=== PATIENT | female | born 1970 | race Caucasian/White ===

== ENCOUNTER 2019-03-29 07:05 | Inpatient (IN) | payer OTHER ==
[~2019-03-29] VITALS: Ht 172.7 cm; Wt 76.7 kg
[~2019-03-29 07:05] MED LIST: ADDERALL XR 3030 MG PO; BENTYL 20 MG TA20 M1 PO; CITRATE OF MAG296 ML PO; GOLYTELY4000 M1 GT; LAMICTAL XR300 MG PO; LINZESS145 MCG PO; MIRALAX17 GM PO; SYNTHROID100 MC1 PO; SYNTHROID75 MCG PO; ZYRTEC10 M1 PO
[2019-03-29 07:19] VITALS: BP 99/59
[2019-03-29 08:01] LABS: URINE BILIRUBIN NEGATIVE (Negative); URINE BLOOD NEGATIVE (Negative); URINE CLARITY CLEAR; URINE COLOR YELLOW; URINE GLUCOSE-RANDOM NEGATIVE (Negative); URINE KETONES NEGATIVE (Negative); URINE LEUKOCYTES-REFLEX NEGATIVE (Negative); URINE NITRITE-REFLEX NEGATIVE (Negative); URINE PROTEIN NEGATIVE (Negative); URINE UROBILINOGEN 0.2 E.U./dl (0.2-1.0)
[2019-03-29 08:16] LABS: ABSOLUTE BASOPHILS 0.1 thou/uL (0.0-0.2); ABSOLUTE LYMPHOCYTES 1.2 thou/uL (0.8-5.3); ABSOLUTE MONOCYTES 1.1 thou/uL (0.0-1.2); ABSOLUTE NEUTROPHILS 6.5 thou/uL (1.6-8.1); EOSINOPHILS 0.4 %; HEMATOCRIT 37.2 % (37.0-47.0); HEMOGLOBIN 12.6 gm/dL (12.0-15.0); MCHC 33.9 g/dL (28.0-37.0); MCV 88.5 fL (80.0-100.0); MONOCYTES 12.7 %; MPV 9.1 fl. (7.2-11.1); NUCLEATED RBCS 0 /100WBC; PLATELET COUNT* 175 thou/uL (150-400); POLYS 72.9 %; RDW-CV 14.2 % (10.5-14.5)
[2019-03-29 08:24] LABS: CALCIUM 7.7 mg/dL (8.5-10.1); CREATININE 0.7 mg/dL (0.6-1.3); POTASSIUM 3.5 mmol/L (3.5-5.1)
[2019-03-29 08:28] LABS: ALBUMIN 2.9 g/dL (3.4-5.0); TOTAL BILIRUBIN 0.3 mg/dL (<0.1-1.0)
[2019-03-29 12:00] VITALS: BP 90/55
[2019-03-29 12:41] VITALS: BP 94/64
[2019-03-29 22:00] VITALS: BP 92/54
[2019-03-30 04:14] LABS: ABSOLUTE BASOPHILS 0.1 thou/uL (0.0-0.2); ABSOLUTE LYMPHOCYTES 1.3 thou/uL (0.8-5.3); ABSOLUTE NEUTROPHILS 6.2 thou/uL (1.6-8.1); BASOPHILS 1.3 %; EOSINOPHILS 0.5 %; HEMATOCRIT 36.2 % (37.0-47.0); LYMPHOCYTES 15.3 %; MCH 29.9 pg (26.0-34.0); MCHC 33.3 g/dL (28.0-37.0); MCV 89.8 fL (80.0-100.0); MONOCYTES 11.5 %; MPV 9.1 fl. (7.2-11.1); NUCLEATED RBCS 0 /100WBC; PLATELET COUNT* 180 thou/uL (150-400); POLYS 71.4 %; RBC 4.03 mil/uL (4.20-5.00); RDW-CV 14.2 % (10.5-14.5); WBC 8.7 thou/uL (4.0-11.0)
[2019-03-30 04:37] LABS: CREATININE 0.7 mg/dL (0.6-1.3); MAGNESIUM 1.8 mg/dL (1.8-2.4); POTASSIUM 3.8 mmol/L (3.5-5.1)
[2019-03-30 05:22] LABS: HEMATOCRIT 35.6 % (37.0-47.0); MCH 30.3 pg (26.0-34.0); MCHC 33.6 g/dL (28.0-37.0); MCV 90.2 fL (80.0-100.0); MPV 10.2 fl. (7.2-11.1); RBC 3.94 mil/uL (4.20-5.00); RDW-CV 14.2 % (10.5-14.5); WBC 8.8 thou/uL (4.0-11.0)
[2019-03-30 08:00] VITALS: BP 118/72
[2019-03-30 11:35] LABS: CALCIUM 7.9 mg/dL (8.5-10.1); CREATININE 0.7 mg/dL (0.6-1.3); MAGNESIUM 1.7 mg/dL (1.8-2.4); POTASSIUM 3.3 mmol/L (3.5-5.1)
--- NOTE | 2019-03-30 11:36 | EKG ---
[place] [address] ELECTROCARDIOGRAM REPORT Name: SHARONA BURCIAGA Room: [address] ADM IN .R.#: [id number] Admission: 03/29/19 Attend Phys: Noemi Juárez MD Discharge: Date of : 70 Report #: [id number] THIS REPORT FOR: //name// [facility] ED Test Date: 2019-03-29 Test Time: 07:32:40 Pat Name: SHARONA BURCIAGA Department: Room: [facility] Gender: F Executive Vp: : 1970 Requested By: Ino Pinedo Order Number: [id number] MD: George Rojo Measurements Intervals [place] Rate: 85 P: 63 [place]: 155 QRS: 48 QRSD: 91 T: 52 QT: 374 QTc: 445 Interpretive Statements Sinus rhythm Low voltage, precordial leads RSR' in V1 or V2, probably normal variant Baseline wander in lead(s) II,III,aVF No previous ECG available for comparison Electronically Signed On 03-30-2019 11:36:18 COMPUTER SYSTEMS ENGINEER by George Rojo [email or web address] <ELECTRONICALLY SIGNED> By: George Rojo MD, FACC 03/30/19 1136 0732 0732 George Rojo MD, [facility] /EPI
[2019-03-30 11:37] LABS: APTT 30.1 Seconds (25.0-31.3); PROTIME 10.7 Seconds (9.20-11.50)
[2019-03-30 16:00] VITALS: BP 92/44
[2019-03-30 21:00] VITALS: BP 102/50
[2019-03-31 06:05] LABS: HEMATOCRIT 32.9 % (37.0-47.0); HEMOGLOBIN 11.2 gm/dL (12.0-15.0); MCH 30.4 pg (26.0-34.0); MCHC 33.9 g/dL (28.0-37.0); MCV 89.5 fL (80.0-100.0); RBC 3.68 mil/uL (4.20-5.00); WBC 5.8 thou/uL (4.0-11.0)
[2019-03-31 06:16] LABS: CALCIUM 7.7 mg/dL (8.5-10.1); CREATININE 0.7 mg/dL (0.6-1.3); POTASSIUM 3.7 mmol/L (3.5-5.1)
[2019-03-31 07:54] VITALS: BP 111/72
[2019-03-31 15:46] VITALS: BP 121/76
[2019-03-31 20:00] VITALS: BP 124/81
[2019-04-01 04:11] LABS: HEMATOCRIT 31.3 % (37.0-47.0); HEMOGLOBIN 10.6 gm/dL (12.0-15.0); MCHC 33.7 g/dL (28.0-37.0); MCV 88.8 fL (80.0-100.0); MPV 9.4 fl. (7.2-11.1); RBC 3.52 mil/uL (4.20-5.00); RDW-CV 13.9 % (10.5-14.5); WBC 5.1 thou/uL (4.0-11.0)
[2019-04-01 04:38] LABS: CALCIUM 7.9 mg/dL (8.5-10.1); CREATININE 0.6 mg/dL (0.6-1.3); POTASSIUM 3.7 mmol/L (3.5-5.1)
[2019-04-01 07:19] VITALS: BP 103/67
[2019-04-01] MEDS ORDERED: NEURONTIN300 MG PO (11:09)
[2019-04-01] MEDS ORDERED: HYDROCODON-ACE1 EAC7 PO (11:10)
[2019-04-01] MEDS ORDERED: LEVAQUIN 750 M750 MG PO (11:11)
[2019-04-01 11:16] VITALS: BP 103/67
[2019-04-01 11:17] VITALS: BP 103/67
[2019-04-01] MEDS ORDERED: AUGMENTIN 875-1 EACH PO (12:28)
[2019-04-01 12:57] VITALS: BP 103/67
[2019-04-01 13:20] VITALS: BP 103/67
--- NOTE | 2019-04-04 21:42 | CON ---
[address] [address] CONSULTATION Name: SHARONA BURCIAGA Room: [address] IN M.R.#: [id number] Admission: 03/29/19 Attend Phys: Noemi Juárez MD Discharge: 04/01/19 Date of : 70 Report #: [id number] THIS REPORT FOR: //name// CC: Noemi Chaney MD DICTATED BY: Sharita Cordero [facility] DATE OF SERVICE: 03/30/2019 Please note at the time of this dictation, the patient was seen and physically examined by myself. REASON FOR CONSULTATION: Diverticulitis with microperforation. HISTORY OF PRESENT ILLNESS: This is a 48-year-old female who presented to the Emergency Room with sudden onset of left lower quadrant pain, which she described as being very abrupt. She was having chills. She was having some nausea as well as a decreased appetite with all this. She denies any fever or diarrhea at that time. She does have issues with chronic constipation, which she takes MiraLax daily for and she has been going regularly, soft and formed every other day. She has not noticed any bright red blood or any melena at this time. She did have a colonoscopy back in 2014 that showed diverticulosis in the sigmoid colon. She had descending and rectal polyps that were tubular adenoma and hyperplastic that were noted, as well as medium hemorrhoids. It was recommended to have a 5-year followup, which she is due next year for at this time. The patient states otherwise she has been doing relatively well since she has been last seen and MiraLax was working for her at this time. ALLERGIES: PREDNISONE AND BACTRIM, MILK AND GLUTEN. The patient does state that couple of years ago, she felt better when she had no dairy products and made herself gluten free. She has not had any testing to indicate that she has any of these problems. She states she just feels better when she has done this. MEDICATIONS FROM HOME: Have been her Adderall, Lamictal, and levothyroxine. PAST MEDICAL HISTORY: Chronic constipation and diverticulosis, ADHD, bipolar, seizure, and hypothyroidism. PAST SURGICAL HISTORY: Tonsillectomy and tubal ligation. FAMILY HISTORY: Positive for colon cancer, maternal grandmother and uncle. SOCIAL HISTORY: Denies any alcohol or illegal drug use; however, she does smoke on occasion [place] [address] CONSULTATION Name: SHARONA BURCIAGA Room: [address] IN [facility]#: [id number] Admission: 03/29/19 Attend Phys: Noemi Juárez MD Discharge: 04/01/19 Date of : 70 Report #: [id number] REVIEW OF SYSTEMS: Twelve-point review of systems is essentially negative except what is mentioned in the HPI. PHYSICAL EXAMINATION: VITAL SIGNS: Temperature 37.3, pulse 89, respirations 14, blood pressure 92/54. HEART: Regular rate and rhythm. LUNGS: Clear. ABDOMEN: Soft, positive bowel sounds in all 4 quadrants with some tenderness noted in the left lower quadrant. LABORATORY DATA: Hemoglobin is 12, white count is 8.8, platelets 173. GFR is 89. CT scan when she came in showed diverticulitis with a microperforation in the sigmoid area. Abdominal x-ray negative. IMPRESSION: 1. Abdominal pain. 2. Constipation. She takes MiraLax daily. 3. Diverticulitis with microperforation. 4. History of colon polyps. 5. Family history of colon cancer. PLAN: 1. We will increase her MiraLax to b.i.d. 2. After the first of the year, the patient will be due for her repeat colonoscopy as well as aching of her diverticular disease. 3. Further recommendations to be made after Dr. Case sees the patient later today. 4. We will continue her antibiotics at this time. Thank you for allowing us to participate in this patient's care. Please do not hesitate to call with any questions in regard to this consult. <ELECTRONICALLY SIGNED> By: Jayy Case DO 04/04/19 2142 [id number] [id number] Case DO /nt
== END 2019-04-01 13:20 | disposition home or self-care (01) | DRG 392 ==
LOC: M.ERS 07:05 → M.TBA-ER 10:03 → M.ORTHSURG 10:03
PROVIDERS: Family Medicine; Internal Medicine; Surgery; ADMIT Internal Medicine
DX: K57.20 Diverticulitis of large intestine with perforation and abscess without bleeding (principal); E44.0 Moderate protein-calorie malnutrition; J90 Pleural effusion, not elsewhere classified; F31.9 Bipolar disorder, unspecified; K59.09 Other constipation; F17.210 Nicotine dependence, cigarettes, uncomplicated; I95.9 Hypotension, unspecified; R30.0 Dysuria; E03.9 Hypothyroidism, unspecified; Z88.2 Allergy status to sulfonamides; Z88.8 Allergy status to other drugs, medicaments and biological substances; Z91.011 Allergy to milk products; Z80.0 Family history of malignant neoplasm of digestive organs; Z86.010 Personal history of colon polyps; Z68.25 Body mass index [BMI] 25.0-25.9, adult